=== PATIENT | male | born 1985 | race Two or more races ===

== ENCOUNTER 2023-09-06 09:15 | Day surgery (SDC) | payer OTHER ==
[2023-09-02 09:15] LABS: HEMATOCRIT 39.6 % (39.0-48.0); HEMOGLOBIN 13.7 g/dL (13-16.00); MEAN CELL VOLUME 86.3 fL (80.0-100.00); MEAN CORPUSCULAR HEMOGLOBIN 29.9 pg (27.00-32.0); MEAN CORPUSCULAR HGB CONC 34.7 g/dl (32.0-36.0); PLATELET COUNT 155 K/uL (150-450); RED BLOOD COUNT 4.59 M/uL (4.00-6.00); RED CELL DISTRIBUTION WIDTH 13.5 % (11.5-14.5)
[2023-09-02 09:17] LABS: PH,URINE 6.5 (5.0-8.0); URINE APPEARANCE Clear; URINE BILIRRUBIN Negative (NEGATIVE); URINE BLOOD Negative; URINE COLOR Yellow; URINE GLUCOSE Negative (NEGATIVE); URINE LEUKOCYTE Negative; URINE NITRATE Negative; URINE PROTEIN Negative (NEGATIVE); URINE UROBILINOGEN 0.2 E.U./dl
[2023-09-02 09:22] LABS: URINE WBC 2.5 uL (0.0-23.2)
[2023-09-02 09:30] LABS: URINE BACTERIA 1.2 uL (0.0-1933); URINE EPITHELIAL CELLS 0.9 uL (0.0-38.8); URINE RBC 0.3 uL (0.0-20.8)
[2023-09-02 09:51] LABS: INR 0.99; PARTIAL THROMBOPLASTIN TIME 25.3 SECONDS (22.0-34.0); PROTHROMBIN TIME 10.4 SECONDS (9.0-11.5)
[2023-09-02 09:53] LABS: ALBUMIN 3.7 gm/dL (3.4-5.0); CALCIUM 9.2 mg/dL (8.5-10.1); CREATININE SERUM 1.02 mg/dL (0.70-1.30); GFR 81.74; PHOSPHOROUS 3.6 mg/dL (2.5-4.9); POTASSIUM 4.42 mEq/L (3.5-5.1)
[~2023-09-06 09:15] MED LIST: FLONASE16 GM
[2023-09-06] MEDS ORDERED: POVIDONE-IODINE 118 ML BOTT TOP ONE (13:30)
[2023-09-06] MEDS ORDERED: EPINEPHRINE HCL/PF 1 MG/ML AMPUL IR ONE (13:30)
[2023-09-06] MEDS ORDERED: CEFAZOLIN SODIUM 1,000 MG VIAL IV SCH (13:30)
[2023-09-06] MEDS ORDERED: DEXAMETHASONE 4 MG TABLET PO ONE (13:45)
[2023-09-06] MEDS ORDERED: CEPHALEXIN500 M1 PO (13:51)
[2023-09-06] MEDS ORDERED: CIPROFLOXACIN2.5 ML OTIC (13:52)
== END 2023-09-06 16:50 | disposition home or self-care (01) ==
LOC: CIR.AMB 09:15
PROVIDERS: ATTEND Otolaryngology Otology & Neurotology
DX: H90.11 Conductive hearing loss, unilateral, right ear, with unrestricted hearing on the contralateral side (principal); H72.01 Central perforation of tympanic membrane, right ear